=== PATIENT | male | born 1980 | race Caucasian/White ===

== ENCOUNTER 2023-08-09 14:31 | Outpatient (REF) | payer MEDICAID, SELFPAY | END 2023-08-09 14:32 | disposition home or self-care (01) | LOC: NCHCN 14:31 | PROVIDERS: Visit Provider Physician Assistant Medical | DX: J02.9 Acute pharyngitis, unspecified (principal) | CPT/HCPCS: 87070 ==

== ENCOUNTER 2023-09-04 12:59 | Outpatient (REF) | payer MEDICAID, SELFPAY | END 2023-09-04 13:00 | disposition home or self-care (01) | LOC: NCHCN 12:59 | PROVIDERS: Visit Provider Physician Assistant | DX: J02.9 Acute pharyngitis, unspecified (principal) | CPT/HCPCS: 87070 ==